=== PATIENT | female | born 1945 | race American Indian/Alaskan Native ===

== ENCOUNTER 2017-12-16 08:50 | Outpatient (CLI) | payer OTHER, MEDICARE ==
--- NOTE | 2017-12-16 09:10 | XRay Report ---
Right knee 4 views: History: Right knee pain. Findings: Marked narrowing of medial compartment and patellofemoral compartment of knee joint. Sclerotic articular surfaces with severe degenerative changes. Spur at the anterosuperior and anteroinferior patella. Suspicion of minimal joint effusion. No fracture. Impression: Severe arthritic changes medial compartment and patellofemoral compartment knee joint.
== END 2017-12-16 08:51 | disposition home or self-care (01) ==
LOC: SPVIMAG 08:50
PROVIDERS: ATTEND Orthopaedic Surgery Sports Medicine
DX: M17.11 Unilateral primary osteoarthritis, right knee (principal)

== ENCOUNTER 2018-08-21 17:37 | Outpatient (CLI) | payer OTHER, MEDICARE ==
--- NOTE | 2018-08-21 23:39 | XRay Report ---
FINAL REPORT PROCEDURE: Lumbar spine. TECHNIQUE: Five views. HISTORY: Low back pain. COMPARISON: No prior studies are available for comparison. FINDINGS: The lumbar vertebrae have normal height and satisfactory alignment. There are no fractures. There is no spondylolisthesis. There is no spondylolysis. There is mild disc space narrowing at L5-S1. The sacrum and sacroiliac joints are unremarkable. There is atherosclerotic calcification in the abdominal aorta and common iliac arteries. IMPRESSION: Mild degenerative disc disease at L5-S1. Atherosclerosis.
--- NOTE | 2018-08-21 23:58 | XRay Report ---
FINAL REPORT PROCEDURE: Bilateral knees. TECHNIQUE: AP and lateral views of each knee. HISTORY: Bilateral knee pain. COMPARISON: No prior studies are available for comparison. FINDINGS: Right knee: The bones appear intact without fracture or dislocation. There is severe narrowing of the medial compartment of the knee joint. There is no significant osteophyte formation. The soft tissues are unremarkable. There is no evidence of a knee effusion. Left knee: The bones appear intact without fracture or dislocation. There is mild narrowing of the medial compartment of the knee joint. There is no significant osteophyte formation. The soft tissues are unremarkable. There is no evidence of a knee effusion. IMPRESSION: Bilateral osteoarthritis, right worse than left.
== END 2018-08-21 17:38 | disposition home or self-care (01) ==
LOC: XRAY 17:37
PROVIDERS: ATTEND Orthopaedic Surgery
DX: M51.37 Other intervertebral disc degeneration, lumbosacral region (principal); M17.0 Bilateral primary osteoarthritis of knee; I70.90 Unspecified atherosclerosis; I10 Essential (primary) hypertension; Z90.710 Acquired absence of both cervix and uterus
CPT/HCPCS: 72110